=== PATIENT | female | born 2000 | race Caucasian/White ===

== ENCOUNTER 2019-03-13 14:47 | Emergency (ER) | payer OTHER ==
[~2019-03-13] VITALS: Ht 160 cm; Wt 62.1 kg
[2019-03-13 14:56] VITALS: BP 115/58; Ht 160 cm; Wt 62.1 kg
== END 2019-03-13 16:26 | disposition left against medical advice (07) ==
LOC: ED 14:47
DX: Z53.21 Procedure and treatment not carried out due to patient leaving prior to being seen by health care provider (principal)